=== PATIENT | male | born 1975 | race Asian ===

== ENCOUNTER 2021-05-02 19:34 | Emergency (ER) | payer OTHER ==
[~2021-05-02] VITALS: Ht 162.6 cm; Wt 72.6 kg
[2021-05-02 19:35] VITALS: BP 154/100
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
--- NOTE | 2021-05-03 03:50 | NUR ---
PATIENT LEFT WITHOUT BEING SEEN BY DR. JAMA. NO FURTHER CARE PROVIDED FOR PATIENT.
== END 2021-05-03 03:50 | disposition left against medical advice (07) ==
LOC: MED 19:34
DX: F10.129 Alcohol abuse with intoxication, unspecified (principal); Z53.21 Procedure and treatment not carried out due to patient leaving prior to being seen by health care provider

== ENCOUNTER 2021-06-01 20:53 | Emergency (ER) | payer OTHER ==
[~2021-06-01] VITALS: Ht 172.7 cm; Wt 69.4 kg
[2021-06-01 20:55] VITALS: BP 138/94
--- NOTE | 2021-06-01 20:59 | NUR ---
LISANDRO WEEMS. TAKEN TO CHAIR A
--- NOTE | 2021-06-01 21:02 | NUR ---
DR. HERNANDEZ EVALUATING PATIENT.
--- NOTE | 2021-06-01 21:05 | NUR ---
PATIENT BIB [place] [employer]. PATIENT EXAMINED BY DR. HERNANDEZ. PATIENT MEDICALLY CLEARED AND RELEASED IN CUSTODY IN STABLE CONDITION. ORIGINAL PRE-BOOK FORM GIVEN TO OFFICER [employer], #[id number].
== END 2021-06-01 21:05 ==
LOC: MED 20:53
DX: J06.9 Acute upper respiratory infection, unspecified (principal); I10 Essential (primary) hypertension; F17.200 Nicotine dependence, unspecified, uncomplicated; Z71.6 Tobacco abuse counseling; Z02.89 Encounter for other administrative examinations; Z88.1 Allergy status to other antibiotic agents; Z88.2 Allergy status to sulfonamides
CPT/HCPCS: 99283